=== PATIENT | male | born 1990 | race African-American/Black ===

== ENCOUNTER 2019-01-18 23:03 | Emergency (ER) | payer MEDICAID ==
[~2019-01-18] VITALS: Ht 172.7 cm; Wt 98.7 kg
[2019-01-18 23:23] VITALS: BP 155/90
--- NOTE | 2019-01-18 23:25 | NUR ---
TO LOBBY A/W BED AMBULATORY
--- NOTE | 2019-01-18 23:28 | NUR ---
Elizabeth jesus in [facility] - 01/18/19 at 2345 by ARLENE PT RETURN FROM XRAY TO [facility]
--- NOTE | 2019-01-18 23:34 | NUR ---
PT AMBULATED TO [facility]
--- NOTE | 2019-01-18 23:45 | NUR ---
PT RETURN FROM XRAY
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
--- NOTE | 2019-01-19 00:21 | NUR ---
Dr. Bravo examining patient.
[2019-01-19] MEDS ORDERED: KETOROLAC 30 MG/ML VIAL IM ONE (00:25)
[2019-01-19] MEDS ORDERED: KETOROLAC 60 MG/2 ML VIAL IM ONE (00:31)
[2019-01-19 01:15] VITALS: BP 150/88
== END 2019-01-19 01:15 | disposition home or self-care (01) ==
LOC: MED 23:03
DX: S83.92XA Sprain of unspecified site of left knee, initial encounter (principal); Y04.2XXA Assault by strike against or bumped into by another person, initial encounter; Y93.89 Activity, other specified; Y92.89 Other specified places as the place of occurrence of the external cause; Y99.8 Other external cause status
CPT/HCPCS: 29505; 73562; 99283; J1885

== ENCOUNTER 2019-07-11 17:49 | Emergency (ER) | payer MEDICAID ==
[~2019-07-11] VITALS: Ht 170.2 cm; Wt 104.3 kg
[2019-07-11 18:00] VITALS: BP 132/87
[2019-07-11 18:40] VITALS: BP 132/87
== END 2019-07-11 18:40 | disposition home or self-care (01) ==
LOC: MED 17:49
DX: J06.9 Acute upper respiratory infection, unspecified (principal); F12.10 Cannabis abuse, uncomplicated; Z71.6 Tobacco abuse counseling
CPT/HCPCS: 99281

== ENCOUNTER 2019-07-30 12:14 | Emergency (ER) | payer MEDICAID, SELFPAY ==
[~2019-07-30] VITALS: Ht 172.7 cm; Wt 104.3 kg
[2019-07-30 12:20] VITALS: BP 165/94
--- NOTE | 2019-07-30 12:20 | NUR ---
29/M presents ambulatory to ED, c/o cough x2 months. pt unsure if seasonal allergies or illness. reports resolved sore throat and CP, denies at any pain this time. denies fever/chills, abd pain, n/v/d. was told by pt's work to be re-evaluated. Pt awake and alert, skin normal color warm and dry, rr even and unlabored. denies med hx or rx.
--- NOTE | 2019-07-30 12:20 | NUR ---
Pt triaged and screened for COVID-19 in medical tent, mask worn by patient. Appropriate PPE worn during encounter. Dr Roy made aware of pt. Pt to remain in medical tent for isolation.
--- NOTE | 2019-07-30 12:30 | NUR ---
Dr Roy evaluating pt in medical tent
[2019-07-30 12:48] VITALS: BP 156/94
--- NOTE | 2019-07-30 12:49 | NUR ---
Patient discharged with v/s stable. Written and verbal after care instructions given and explained. Patient alert, oriented and verbalized understanding of instructions. Ambulatory with steady gait. All questions addressed prior to discharge. ID band removed. Patient advised to follow up with PMD. Rx of Claritin given. Patient educated on indication of medication including possible reaction and side effects. Opportunity to ask questions provided and answered.
== END 2019-07-30 12:49 | disposition home or self-care (01) ==
LOC: MED 12:14 → EEVIPCON 12:14 → MED 12:49
DX: J40 Bronchitis, not specified as acute or chronic (principal); J30.2 Other seasonal allergic rhinitis; F12.90 Cannabis use, unspecified, uncomplicated
CPT/HCPCS: 99282